=== PATIENT | male | born 1955 | race Caucasian/White ===

== ENCOUNTER → 2016-07-27 | Outpatient (REF) | payer OTHER ==
[~2016-07-27] MED LIST: ALOE JUICE; MULTIVITAMIN PO; RANI15TA PO
== END | disposition home or self-care (01) ==
LOC: M LAB REF 12:44
PROVIDERS: ATTEND Internal Medicine
DX: R31.9 Hematuria, unspecified (principal)

== ENCOUNTER 2016-08-27 07:28 | Emergency (ER) | payer OTHER ==
[~2016-08-27] VITALS: Ht 185.4 cm; Wt 81.6 kg
--- NOTE | 2016-08-27 08:12 | REP ---
Clinical: Chest pain . Comparison: 07/22/2009 . Findings: The mediastinum and cardiac silhouette are stable and within normal limits for portable technique. The lung owens are clear without acute consolidation, effusion, or pneumothorax. Skeletal structures are intact. Impression: Normal portable chest x-ray Signed by Davidson Blackman MD 08/27/2016 08:04 A
[2016-08-27 08:25] LABS: ANION GAP 8 MEQ/L (8-16); BLOOD UREA NITROGEN 18 MG/DL (7-18); CALCIUM LEVEL 8.8 MG/DL (8.8-10.2); CARBON DIOXIDE LEVEL 24 MEQ/L (21-32); CHLORIDE LEVEL 109 MEQ/L (98-107); CREATININE FOR GFR 1.05 MG/DL (0.70-1.30); GLOMERULAR FILTRATION RATE > 60.0 (>49); GLUCOSE, FASTING 131 MG/DL (80-110); POTASSIUM SERUM 4.1 MEQ/L (3.5-5.1); SODIUM LEVEL 141 MEQ/L (136-145)
[2016-08-27 08:31] LABS: BASO % 0.3 % (0.0-1.0); EOS # 0.1 K/mm3 (0.0-0.50); EOS % 1.3 % (0.0-3.0); LARGE UNSTAINED CELL # 0.2 K/mm3 (0.0-0.4); LARGE UNSTAINED CELL % 3.2 % (0.0-4.0); LYMPH # 2.7 K/mm3 (1.5-4.5); LYMPH % 32.7 % (24.0-44.0); MEAN CORPUSCULAR HEMOGLOBIN 30.7 pg (27.0-33.0); MEAN CORPUSCULAR HGB CONC 32.7 g/dl (32.0-36.5); MONO # 0.5 K/mm3 (0.0-0.8); MONO % 7.2 % (0.0-5.0); NEUTROPHILS # 4.1 K/mm3 (1.8-7.7); NEUTROPHILS % 55.2 % (36.0-66.0); PLATELET COUNT, AUTOMATED 327 k/mm3 (150-450); RED CELL DISTRIBUTION WIDTH 14.5 % (11.5-14.5); WHITE BLOOD COUNT 7.4 K/mm3 (4.0-10.0)
[2016-08-27] MEDS ORDERED: ISOVUE-370 76% 100ML VIAL (Q9967) As Ordered ONE (11:12)
--- NOTE | 2016-08-27 13:44 | REP ---
CT pulmonary angiogram: With IV contrast. History: Chest pain, shortness of breath, elevated D-dimer level. Comparison studies: No comparison contrast enhanced chest CT study. There is a lung cancer screening noncontrast chest CT study from November 08, 2014. Contrast dose: 75 cc's of Isovue [address] technique: Helical scanning is acquired and overlapping 1.5 mm and contiguous 3 mm axial images are reformatted. In addition, a 3-D work station is deployed to generate thick slab maximum intensity projection images in sagittal and coronal imaging projections. CT pulmonary angiographic findings: There is good opacification of the pulmonary arterial tree and there is no CT evidence of pulmonary embolism. The thoracic aorta has a normal appearance on postcontrast CT images. 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 This is of no clinical significance. The lung owens are essentially clear. There is no evidence of pleural effusion or pericardial effusion. No hilar or mediastinal mass or adenopathy is seen. No adrenal lesion is observed. No significant pulmonary nodule is seen. Impression: No CT evidence of pulmonary embolism. No active cardiopulmonary disease. Signed by Navi Ribera MD 08/27/2016 05:37 P
[2016-08-27] MEDS ORDERED: ASPI81TA85 PO (14:52)
[2016-08-27 16:12] VITALS: BP 111/67
--- NOTE | 2016-08-28 08:42 | ECGEPIP ---
Stationary ECG Study [facility] - ED Test Date: 2016-08-27 Pat Name: BLANCO DAVIS Department: Room: - Gender: M Planning Assistant: JT : 1955 Requested By: Helen Samson Order Number: [id number] Reading MD: Helen Samson Measurements Intervals [place] Rate: 64 P: 55 [place]: 143 QRS: 36 QRSD: 127 T: 57 QT: 384 QTc: 397 Interpretive Statements SINUS RHYTHM MODERATE INTRAVENTRICULAR CONDUCTION DELAY DECREASED RATE 08/27/16 Electronically Signed On 08-28-2016 8:41:55 EDT by Helen Samson
--- NOTE | 2016-08-28 08:42 | ECGEPIP ---
Stationary ECG Study [facility] - ED Test Date: 2016-08-27 Pat Name: BLANCO DAVIS Department: Room: - Gender: M Sales Representative Facility Services: JGeovani : 1955 Requested By: Helen Samson Order Number: [id number] Reading MD: Helen Samson Measurements Intervals [place] Rate: 95 P: 67 MT: 149 QRS: 29 QRSD: 125 T: 48 QT: 373 QTc: 469 Interpretive Statements SINUS RHYTHM MODERATE INTRAVENTRICULAR CONDUCTION DELAY NO PRIOR FOR COMPARISON Electronically Signed On 08-28-2016 8:41:43 EDT by Helen Samson
== END 2016-08-27 16:14 | disposition home or self-care (01) ==
LOC: M ED 10:22
DX: R07.9 Chest pain, unspecified (principal); Z82.49 Family history of ischemic heart disease and other diseases of the circulatory system; Z79.82 Long term (current) use of aspirin; Z79.899 Other long term (current) drug therapy; F17.210 Nicotine dependence, cigarettes, uncomplicated
CPT/HCPCS: 36415; 71010; 71275; 80048; 82550; 82553; 85025; 85379; 93005; 93041; 94760; 99285; Q9967

== ENCOUNTER 2016-09-01 11:32 | Emergency (ER) | payer OTHER ==
[~2016-09-01] VITALS: Ht 185.4 cm; Wt 81.6 kg
[~2016-09-01 11:32] MED LIST changes: +ASPI81TA85 PO
[2016-09-01 12:42] LABS: BASO % 0.4 % (0.0-1.0); EOS % 0.6 % (0.0-3.0); LARGE UNSTAINED CELL # 0.2 K/mm3 (0.0-0.4); LARGE UNSTAINED CELL % 1.9 % (0.0-4.0); LYMPH % 23.7 % (24.0-44.0); MEAN CORPUSCULAR HEMOGLOBIN 31.2 pg (27.0-33.0); MEAN CORPUSCULAR HGB CONC 32.8 g/dl (32.0-36.5); MONO # 0.6 K/mm3 (0.0-0.8); MONO % 7.5 % (0.0-5.0); NEUTROPHILS # 5.3 K/mm3 (1.8-7.7); NEUTROPHILS % 65.9 % (36.0-66.0); PLATELET COUNT, AUTOMATED 388 k/mm3 (150-450); RED CELL DISTRIBUTION WIDTH 14.3 % (11.5-14.5)
[2016-09-01 12:43] LABS: ANION GAP 6 MEQ/L (8-16); BLOOD UREA NITROGEN 17 MG/DL (7-18); CALCIUM LEVEL 9.6 MG/DL (8.8-10.2); CARBON DIOXIDE LEVEL 26 MEQ/L (21-32); CHLORIDE LEVEL 107 MEQ/L (98-107); CREATININE FOR GFR 1.17 MG/DL (0.70-1.30); GLOMERULAR FILTRATION RATE > 60.0 (>49); GLUCOSE, FASTING 108 MG/DL (80-110); POTASSIUM SERUM 4.2 MEQ/L (3.5-5.1); SODIUM LEVEL 139 MEQ/L (136-145)
[2016-09-01] MEDS ORDERED: ASPIRIN 81 MG CHEW TABLET PO ONE (13:15)
[2016-09-01] MEDS ORDERED: GI COCKTAIL 50ML BTL(HYOSCYAMINE/MAALOX/LIDOCAINE VISCOUS)(1:3:1) PO ONE (13:15)
[2016-09-01 13:25] LABS: ALBUMIN 4.1 GM/DL (3.2-5.2); ALBUMIN/GLOBULIN RATIO 1.05 (1.00-1.93); ALKALINE PHOSPHATASE 103 U/L (45-117); ALT/SGPT 23 U/L (12-78); AST/SGOT 13 U/L (15-37); BILIRUBIN,DIRECT < 0.1 MG/DL (0.0-0.2); BILIRUBIN,TOTAL 0.3 MG/DL (0.2-1.0)
--- NOTE | 2016-09-01 13:46 | REP ---
Chest two views HISTORY: Chest pain Comparison: 08/27/2016 The lungs are clear. The heart is normal in size. The pulmonary vasculature is normal in appearance. The bony structure is intact. IMPRESSION: No acute disease. Signed by Livan Gardiner MD 09/01/2016 01:38 P
[2016-09-01] MEDS ORDERED: PROT1TAB2 PO (18:17)
[2016-09-01 18:33] VITALS: BP 121/73
--- NOTE | 2016-09-02 07:17 | ECGEPIP ---
Stationary ECG Study [facility] - ED Test Date: 2016-09-01 Pat Name: BLANCO DAVIS Department: Room: - Gender: M Forklift Picker: mario : 1955 Requested By: Faye Leija Order Number: [id number] Reading MD: Helen Samson Measurements Intervals [place] Rate: 67 P: 65 [place]: 141 QRS: 26 QRSD: 115 T: 57 QT: 384 QTc: 406 Interpretive Statements SINUS RHYTHM WITH SINUS ARRHYTHMIA MODERATE INTRAVENTRICULAR CONDUCTION DELAY SIMILAR 08/27/16 Electronically Signed On 09-02-2016 7:17:02 EDT by Helen Samson
--- NOTE | 2016-09-02 07:21 | ECGEPIP ---
Stationary ECG Study [facility] - ED Test Date: 2016-09-01 Pat Name: BLANCO DAVIS Department: Room: - Gender: M Methods Engineer: JGeovani : 1955 Requested By: GASTON Diaz Order Number: [id number] Reading MD: Helen Samson Measurements Intervals [place] Rate: 50 P: 51 [place]: 142 QRS: 41 QRSD: 121 T: 58 QT: 426 QTc: 390 Interpretive Statements SINUS BRADYCARDIA IVCD SIMILAR 11:49 Electronically Signed On 09-02-2016 7:21:13 EDT by Helen Samson
== END 2016-09-01 18:39 | disposition home or self-care (01) ==
LOC: M ED 13:31
DX: R07.9 Chest pain, unspecified (principal)

== ENCOUNTER → 2016-09-18 | Outpatient (CLI) | payer OTHER ==
[~2016-09-18] MED LIST changes: +PROT1TAB2 PO
--- NOTE | 2016-09-18 10:59 | REP ---
CT of the left hip: Axial images are acquired helical scanning and are reformatted sagittal and coronal projections. There are no comparison studies. There is gamma nail fixation of a subtrochanteric fracture. The subtrochanteric fracture is a spiral fracture of the proximal shaft of the femur. The lucent fracture line persists except for a focal zone of bony fusion at the inferior margin of the fracture. 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 Moderate diffuse demineralization is noted. No focal lytic, blastic or destructive changes are identified. The distal tip of the gamma nail is excluded from the study. Signed by Kevin Carroll MD 09/18/2016 10:50 A
== END ==
LOC: M RAD 09:59
PROVIDERS: ATTEND Orthopaedic Surgery
DX: M16.12 Unilateral primary osteoarthritis, left hip (principal); M85.88 Other specified disorders of bone density and structure, other site

== ENCOUNTER → 2017-06-30 | Outpatient (CLI) | payer OTHER ==
[2017-06-30 15:41] LABS: CREATININE FOR GFR 1.09 MG/DL (0.70-1.30); GLOMERULAR FILTRATION RATE > 60.0 (>49)
[2017-06-30 15:41] LABS: BLOOD UREA NITROGEN 23 MG/DL (7-18)
[2017-07-02 14:16] LABS: TISSUE TRANSGLUTAMINASE IgA <2 U/mL (0-3)
[2017-07-07 08:09] LABS: IGASUB3 72.6 mg/dL (13.4-97.9); IgA SERUM (part of Subclasses) 248 mg/dL (61-437)
== END ==
LOC: M LAB 14:29
DX: R10.13 Epigastric pain (principal)

== ENCOUNTER 2017-07-20 06:54 | Day surgery (SDC) | payer OTHER ==
[2017-07-20] MEDS: NS 1,000 ML IV (07:30)
[2017-07-20] MEDS ORDERED: LIDOCAINE 2% INJ 100 MG/5 ML SDV (FOR ANES.) As Ordered (08:08)
[2017-07-20] MEDS ORDERED: PROPOFOL 200 MG/20 ML VIAL As Ordered ×3 (08:08→08:23)
[2017-07-20] MEDS ORDERED: PHENYLephrine HCL 500 MCG/5 ML (100MCG/ML) SYRINGE (J2370) As Ordered (08:22)
== END 2017-07-20 09:25 | disposition home or self-care (01) ==
LOC: M OPP 06:54
DX: K21.9 Gastro-esophageal reflux disease without esophagitis (principal); K22.8 Other specified diseases of esophagus; K29.70 Gastritis, unspecified, without bleeding; K31.89 Other diseases of stomach and duodenum; R12 Heartburn; F32.9 Major depressive disorder, single episode, unspecified; F41.9 Anxiety disorder, unspecified; Z79.899 Other long term (current) drug therapy; Z80.9 Family history of malignant neoplasm, unspecified
CPT/HCPCS: 91035

== ENCOUNTER 2017-08-10 09:24 | Emergency (ER) | payer OTHER ==
[2017-08-10 09:59] LABS: BASO % 0.5 % (0.0-1.0); EOS # 0.1 10^3/uL (0.0-0.50); EOS % 1.5 % (0.0-3.0); HEMATOCRIT 44.8 % (42.0-52.0); HEMOGLOBIN 15.1 g/dl (14.0-18.0); IMMATURE GRANULOCYTE % 0.2 % (0-3.0); LYMPH # 3.6 10^3/uL (1.5-4.5); LYMPH % 41.1 % (24.0-44.0); MEAN CORPUSCULAR HEMOGLOBIN 31.3 pg (27.0-33.0); MEAN CORPUSCULAR HGB CONC 33.7 g/dl (32.0-36.5); MEAN CORPUSCULAR VOLUME 92.9 fl (80.0-96.0); MONO # 0.9 10^3/uL (0.0-0.8); MONO % 10.7 % (0.0-5.0); PLATELET COUNT, AUTOMATED 314 10^3/uL (150-450); RED BLOOD COUNT 4.82 10^6/uL (4.30-6.10); RED CELL DISTRIBUTION WIDTH 14.2 % (11.5-14.5); WHITE BLOOD COUNT 8.7 10^3/uL (4.0-10.0)
[2017-08-10] MEDS: ASPIRIN 81 MG CHEW TABLET PO (10:00)
[2017-08-10 10:09] LABS: ALKALINE PHOSPHATASE 78 U/L (45-117); ALT/SGPT 24 U/L (12-78); ANION GAP 8 MEQ/L (8-16); AST/SGOT 15 U/L (7-37); BILIRUBIN,DIRECT < 0.1 MG/DL (0.0-0.2); BILIRUBIN,TOTAL 0.4 MG/DL (0.2-1.0); BLOOD UREA NITROGEN 19 MG/DL (7-18); CALCIUM LEVEL 8.9 MG/DL (8.8-10.2); CARBON DIOXIDE LEVEL 26 MEQ/L (21-32); CHLORIDE LEVEL 106 MEQ/L (98-107); CPK CREATINE PHOSPHOKINASE 94 U/L (39-308); CREATININE FOR GFR 1.07 MG/DL (0.70-1.30); FREE T4 0.91 NG/DL (0.76-1.46); GLOMERULAR FILTRATION RATE > 60.0 (>49); GLUCOSE, FASTING 112 MG/DL (70-100); LIPASE 117 U/L (73-393); POTASSIUM SERUM 3.5 MEQ/L (3.5-5.1); SODIUM LEVEL 140 MEQ/L (136-145); TROPONIN I < 0.02 NG/ML (< 0.10)
[2017-08-10 10:15] LABS: MB/CK RELATIVE INDEX 1.06 (< OR =4); NT-PRO BNP 61 PG/ML (<125)
[2017-08-10 10:21] LABS: INR 0.86; PROTHROMBIN TIME 11.8 SECONDS (12.4-14.5)
[2017-08-10 10:22] LABS: PARTIAL THROMBOPLASTIN TIME 28.8 SECONDS (26.8-37.9)
[2017-08-10 12:34] LABS: CPK CREATINE PHOSPHOKINASE 79 U/L (39-308); MB/CK RELATIVE INDEX 1.26 (< OR =4); TROPONIN I < 0.02 NG/ML (< 0.10)
== END 2017-08-10 13:56 | disposition home or self-care (01) ==
LOC: M ED 09:24
DX: R07.89 Other chest pain (principal); R00.2 Palpitations; K21.9 Gastro-esophageal reflux disease without esophagitis; Z79.899 Other long term (current) drug therapy; Z87.891 Personal history of nicotine dependence
CPT/HCPCS: 71045

== ENCOUNTER 2017-08-31 08:07 | Emergency (ER) | payer OTHER ==
[2017-08-31 08:53] LABS: BASO % 0.5 % (0.0-1.0); EOS # 0.2 10^3/uL (0.0-0.50); EOS % 2.3 % (0.0-3.0); HEMATOCRIT 46.3 % (42.0-52.0); HEMOGLOBIN 15.5 g/dl (14.0-18.0); IMMATURE GRANULOCYTE % 0.2 % (0-3.0); MEAN CORPUSCULAR HEMOGLOBIN 31.1 pg (27.0-33.0); MEAN CORPUSCULAR HGB CONC 33.5 g/dl (32.0-36.5); MONO % 11.7 % (0.0-5.0); NEUTROPHILS # 3.9 10^3/uL (1.8-7.7); NEUTROPHILS % 48.3 % (36.0-66.0); PLATELET COUNT, AUTOMATED 322 10^3/uL (150-450); RED BLOOD COUNT 4.98 10^6/uL (4.30-6.10); RED CELL DISTRIBUTION WIDTH 14.3 % (11.5-14.5); WHITE BLOOD COUNT 8.1 10^3/uL (4.0-10.0)
[2017-08-31 08:58] LABS: BEDSIDE GLUCOSE 84 MG/DL (80-115)
[2017-08-31] MEDS: NS 500 ML IV (09:01)
[2017-08-31 09:19] LABS: ALBUMIN 3.9 GM/DL (3.2-5.2); ALKALINE PHOSPHATASE 75 U/L (45-117); ALT/SGPT 23 U/L (12-78); ANION GAP 7 MEQ/L (8-16); AST/SGOT 16 U/L (7-37); BILIRUBIN,DIRECT < 0.1 MG/DL (0.0-0.2); BILIRUBIN,TOTAL 0.4 MG/DL (0.2-1.0); BLOOD UREA NITROGEN 18 MG/DL (7-18); CALCIUM LEVEL 9.3 MG/DL (8.8-10.2); CARBON DIOXIDE LEVEL 29 MEQ/L (21-32); CHLORIDE LEVEL 106 MEQ/L (98-107); CREATININE FOR GFR 1.06 MG/DL (0.70-1.30); GLOMERULAR FILTRATION RATE > 60.0 (>49); GLUCOSE, FASTING 91 MG/DL (70-100); LIPASE 126 U/L (73-393); POTASSIUM SERUM 3.8 MEQ/L (3.5-5.1); SODIUM LEVEL 142 MEQ/L (136-145); TOTAL PROTEIN 7.8 GM/DL (6.4-8.2)
[2017-08-31 10:47] LABS: CPK CREATINE PHOSPHOKINASE 66 U/L (39-308); MB/CK RELATIVE INDEX 1.51 (< OR =4); TROPONIN I < 0.02 NG/ML (< 0.10)
== END 2017-08-31 11:59 | disposition home or self-care (01) ==
LOC: M ED 08:07
DX: R42 Dizziness and giddiness (principal); H93.19 Tinnitus, unspecified ear; G89.29 Other chronic pain; R10.9 Unspecified abdominal pain; Z79.82 Long term (current) use of aspirin
CPT/HCPCS: 70450

== ENCOUNTER → 2017-10-15 | Outpatient (CLI) | payer OTHER ==
[~2017-10-15] MED LIST changes: -ALOE JUICE; -ASPI81TA85 PO; +GASTROGRAFIN SOLUTION 30ML (Q9963) As Ordered; +ISOVUE-370 76% 100ML VIAL (Q9967) As Ordered; -MULTIVITAMIN PO; -PROT1TAB2 PO; -RANI15TA PO
== END ==
LOC: M RAD 08:52
DX: R10.13 Epigastric pain (principal); R10.12 Left upper quadrant pain; M16.0 Bilateral primary osteoarthritis of hip
CPT/HCPCS: Q9963

== ENCOUNTER → 2018-07-05 | Outpatient (REF) | payer OTHER ==
[~2018-07-05] MED LIST changes: +ALOE JUICE; +ASPI81TA85 PO; -GASTROGRAFIN SOLUTION 30ML (Q9963) As Ordered; +HOLTER MONITOR; -ISOVUE-370 76% 100ML VIAL (Q9967) As Ordered; +MULTIVITAMIN PO; +PANT40TA3 PO; +PROT1TAB2 PO; +RANI15TA PO; +TUMS500C PO; +ZANT300T9 PO
[2018-07-05 12:36] LABS: AMYLASE 25 U/L (25-115); LIPASE 110 U/L (73-393)
== END ==
LOC: M LAB REF 11:48
PROVIDERS: ATTEND Nurse Practitioner Family
DX: R10.812 Left upper quadrant abdominal tenderness (principal)

== ENCOUNTER 2018-07-09 04:57 | Emergency (ER) | payer OTHER ==
[~2018-07-09] VITALS: Ht 185.4 cm; Wt 81.8 kg
[2018-07-09 05:41] LABS: BASO % 0.6 % (0.0-1.0); EOS # 0.1 10^3/uL (0.0-0.50); EOS % 1.7 % (0.0-3.0); HEMATOCRIT 44.6 % (42.0-52.0); HEMOGLOBIN 14.7 g/dl (13.5-17.5); LYMPH # 3.4 10^3/uL (1.5-4.5); LYMPH % 47.7 % (24.0-44.0); MEAN CORPUSCULAR HEMOGLOBIN 31.1 pg (27.0-33.0); MEAN CORPUSCULAR VOLUME 94.3 fl (80.0-96.0); MONO # 0.9 10^3/uL (0.0-0.8); MONO % 12.9 % (0.0-5.0); NEUTROPHILS # 2.6 10^3/uL (1.8-7.7); PLATELET COUNT, AUTOMATED 308 10^3/uL (150-450); RED BLOOD COUNT 4.73 10^6/uL (4.30-6.10)
[2018-07-09 05:52] LABS: INR 0.98; PROTHROMBIN TIME 13.1 SECONDS (12.1-14.4)
[2018-07-09 06:02] LABS: ALBUMIN 3.8 GM/DL (3.2-5.2); ALT/SGPT 25 U/L (12-78); BILIRUBIN,TOTAL 0.1 MG/DL (0.2-1.0); BLOOD UREA NITROGEN 17 MG/DL (7-18); CALCIUM LEVEL 8.6 MG/DL (8.8-10.2); CARBON DIOXIDE LEVEL 24 MEQ/L (21-32); CHLORIDE LEVEL 110 MEQ/L (98-107); CK-MB VALUE MASS < 1.0 NG/ML (<3.6); CPK CREATINE PHOSPHOKINASE 92 U/L (39-308); CREATININE FOR GFR 1.05 MG/DL (0.70-1.30); GLOMERULAR FILTRATION RATE > 60.0 (>49); GLUCOSE, FASTING 87 MG/DL (70-100); LIPASE 139 U/L (73-393); MB/CK RELATIVE INDEX 1.09 (< OR =4); POTASSIUM SERUM 3.6 MEQ/L (3.5-5.1); SODIUM LEVEL 144 MEQ/L (136-145); TROPONIN I < 0.02 NG/ML (< 0.10)
[2018-07-09] MEDS ORDERED: ISOVUE-370 76% 100ML VIAL (Q9967) As Ordered ONE (06:47)
[2018-07-09 06:52] LABS: MAGNESIUM LEVEL 1.9 MG/DL (1.8-2.4)
--- NOTE | 2018-07-09 07:51 | REPVR ---
EXAM: CT Angiography Chest With Contrast EXAM DATE/TIME: 07/09/2018 6:19 AM CLINICAL HISTORY: 63 years old, male; Pain; Chest pain; Type not specified TECHNIQUE: Axial computed tomographic angiography images of the chest with intravenous contrast using CT angiography protocol. All CT scans at this facility use at least one of these dose optimization techniques: automated exposure control; mA and/or kV adjustment per patient size (includes targeted exams where dose is matched to clinical indication); or iterative reconstruction. Coronal and sagittal reformatted images were created and reviewed. MIP reconstructed images were created and reviewed. CONTRAST: 75 ml of iso administered intravenously. COMPARISON: CT ANGIO CHEST 08/27/2016 11:19 AM FINDINGS: Pulmonary arteries: Questionable eccentric wall thickening of the arterial structure to the left upper lobe anteriorly series 401 images 75-78 is similar to the prior CT. No acute pulmonary embolus. Aorta: Normal. No aortic aneurysm. No aortic dissection. Lungs: Minor dependent atelectasis posterior lower lungs. Pleural space: Normal. No pneumothorax. No pleural effusion. Heart: Right to left ventricular ratio 0.9. Intraperitoneal space: Trace calcification thoracic aortic arch. Lymph nodes: A few small mediastinal lymph nodes. Bones/joints: Variant origin of thoracic arch vasculature. Soft tissues: Unremarkable. IMPRESSION: No evidence of acute pulmonary embolus. Electronically signed by: Rianna Monsalve On 07/09/2018 07:50:41 AM
--- NOTE | 2018-07-09 08:13 | REP ---
Clinical: Abdominal pain. Technique: Two supine views of the abdomen and pelvis. Findings: Bowel gas pattern is nonspecific and without obstruction or perforation. No organomegaly. No abnormal calcifications. Skeletal structures demonstrate age-related changes. Phleboliths noted in the pelvis. Impression: Nonspecific abdominal radiograph. Electronically Signed by Davidson Blackman MD 07/09/2018 08:05 A
--- NOTE | 2018-07-09 08:17 | REP ---
Clinical: Acute chest pain . Comparison: 08/10/2017 . Findings: The mediastinum and cardiac silhouette are stable and within normal limits for portable technique. The lung owens are clear without acute consolidation, effusion, or pneumothorax. Skeletal structures are intact. Impression: No acute cardiopulmonary process appreciated. Electronically Signed by Davidson Blackman MD 07/09/2018 08:08 A
[2018-07-09 10:35] LABS: CK-MB VALUE MASS < 1.0 NG/ML (<3.6); CPK CREATINE PHOSPHOKINASE 84 U/L (39-308); MB/CK RELATIVE INDEX 1.19 (< OR =4); TROPONIN I < 0.02 NG/ML (< 0.10)
[2018-07-09 10:59] VITALS: BP 111/68
--- NOTE | 2018-07-10 09:12 | ECGEPIP ---
Stationary ECG Study [facility] - ED Test Date: 2018-07-09 Pat Name: BLANCO DAVIS Department: Room: - Gender: M Monotype Machinist: GT : 1955 Requested By: CORRY Rizo Order Number: [id number] Reading MD: Helen Samson Measurements Intervals [place] Rate: 93 P: 60 [place]: 148 QRS: -3 QRSD: 106 T: 55 QT: 363 QTc: 452 Interpretive Statements SINUS RHYTHM WITH SINUS ARRHYTHMIA MINIMAL ST DEPRESSION LOW VOLTAGE PRWP IVCD INCREASED RATE 08/31/17 Electronically Signed On 07-10-2018 9:12:42 EST by Helen Samson
--- NOTE | 2018-07-10 09:15 | ECGEPIP ---
Stationary ECG Study [facility] - ED Test Date: 2018-07-09 Pat Name: BLANCO DAVIS Department: Room: - Gender: M Coordinate Measuring Machine Programmer: JAYANT : 1955 Requested By: THEODORE MORALES Order Number: [id number] Reading MD: Helen Samson Measurements Intervals [place] Rate: 62 P: 72 MD: 137 QRS: 10 QRSD: 104 T: 52 QT: 409 QTc: 418 Interpretive Statements SINUS RHYTHM WITH SINUS ARRHYTHMIA LOW QRS VOLTAGE IN EXTREMITY LEADS PRWP DECREASED RATE 07/09/18 Electronically Signed On 07-10-2018 9:15:13 EST by Helen Samson
== END 2018-07-09 11:06 | disposition home or self-care (01) ==
LOC: M ED 04:57
DX: R07.89 Other chest pain (principal); Z87.891 Personal history of nicotine dependence; Z79.899 Other long term (current) drug therapy
CPT/HCPCS: 71045; 71275; 74018; 80053; 82550; 82553; 83690; 83735; 84443; 84484; 85025; 85610; 93005; 93041; 94760; 99285; Q9967

== ENCOUNTER 2018-10-11 11:14 | Emergency (ER) | payer OTHER ==
[~2018-10-11] VITALS: Ht 185.4 cm; Wt 84.8 kg
[2018-10-11] MEDS ORDERED: ASPIRIN 81 MG CHEW TABLET PO ONE (11:45)
[2018-10-11 11:51] LABS: BASO % 0.4 % (0.0-1.0); EOS # 0.1 10^3/uL (0.0-0.50); EOS % 0.9 % (0.0-3.0); HEMOGLOBIN 14.6 g/dl (13.5-17.5); LYMPH # 2.2 10^3/uL (1.5-4.5); MEAN CORPUSCULAR HEMOGLOBIN 31.2 pg (27.0-33.0); MEAN CORPUSCULAR HGB CONC 32.4 g/dl (32.0-36.5); MEAN CORPUSCULAR VOLUME 96.2 fl (80.0-96.0); MONO # 0.8 10^3/uL (0.0-0.8); MONO % 10.7 % (0.0-5.0); NEUTROPHILS # 4.3 10^3/uL (1.8-7.7); NEUTROPHILS % 57.7 % (36.0-66.0); PLATELET COUNT, AUTOMATED 292 10^3/uL (150-450); RED BLOOD COUNT 4.68 10^6/uL (4.30-6.10); WHITE BLOOD COUNT 7.4 10^3/uL (4.0-10.0)
[2018-10-11 12:02] LABS: INR 0.88; PARTIAL THROMBOPLASTIN TIME 29.6 SECONDS (25.4-37.6)
[2018-10-11 12:20] LABS: ALBUMIN 4.3 GM/DL (3.2-5.2); ALT/SGPT 27 U/L (12-78); BILIRUBIN,DIRECT < 0.1 MG/DL (0.0-0.2); BILIRUBIN,TOTAL 0.4 MG/DL (0.2-1.0); LIPASE 105 U/L (73-393); TOTAL PROTEIN 7.8 GM/DL (6.4-8.2)
[2018-10-11 12:21] LABS: BLOOD UREA NITROGEN 17 MG/DL (7-18); CALCIUM LEVEL 8.6 MG/DL (8.8-10.2); CARBON DIOXIDE LEVEL 27 MEQ/L (21-32); CHLORIDE LEVEL 107 MEQ/L (98-107); CPK CREATINE PHOSPHOKINASE 87 U/L (39-308); GLOMERULAR FILTRATION RATE > 60.0 (>49); GLUCOSE, FASTING 97 MG/DL (70-100); MB/CK RELATIVE INDEX 1.38 (< OR =4); POTASSIUM SERUM 4.3 MEQ/L (3.5-5.1); SODIUM LEVEL 139 MEQ/L (136-145); TROPONIN I < 0.02 NG/ML (< 0.10)
--- NOTE | 2018-10-11 12:43 | REP ---
Chest one-view HISTORY: Chest pain Comparison: 07/09/2018 The lungs are clear. The heart is normal in size. The pulmonary vasculature is normal in appearance. Impression: No acute disease. Electronically Signed by Livan Gardiner MD 10/11/2018 12:35 P
[2018-10-11] MEDS ORDERED: ISOVUE-370 76% 100ML VIAL (Q9967) As Ordered ONE (12:49)
--- NOTE | 2018-10-11 13:33 | REP ---
CT CHEST WITH IV CONTRAST: TECHNIQUE: Axial contrast enhanced images from the thoracic inlet to the upper abdomen using 100 mL Isovue 370 intravenous contrast material with multiplanar reformations. Lungs are clear with no infiltrate. There is no thoracic aortic aneurysm or dissection. There are mild atherosclerotic calcifications of the thoracic aorta. There is no mediastinal, hilar, or chest wall lymphadenopathy. The heart is normal in size. There is no pleural or pericardial effusion. Very mild degenerative changes of the spine. IMPRESSION: No evidence of thoracic aortic aneurysm or dissection. Electronically Signed by Kevin Renae MD 10/12/2018 04:41 P
--- NOTE | 2018-10-11 13:48 | REP ---
CT ABDOMEN AND PELVIS WITH IV CONTRAST: TECHNIQUE: Axial contrast enhanced images from the lung bases to the pubic symphysis using 100 mL Isovue 370 intravenous contrast material with multiplanar reformations. Liver, spleen, adrenals and pancreas are unremarkable. There appears to be a tiny cyst in the lower pole of the right kidney and another is seen in the upper pole of the left kidney. There is no hydronephrosis bilaterally. There is mild atherosclerotic calcification of the abdominal aorta without aneurysm or dissection. There is no adenopathy. There is no free air or free fluid. There is no bowel wall thickening. Large amount of fecal material is seen in the rectosigmoid colon. The urinary bladder is mildly distended and grossly unremarkable. There is metallic internal fixation of the proximal left femur. 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 IMPRESSION: No evidence of abdominal aortic aneurysm or dissection. 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 Electronically Signed by Kevin Renae MD 10/12/2018 04:42 P
[2018-10-11 18:06] LABS: CK-MB VALUE MASS < 1.0 NG/ML (<3.6); CPK CREATINE PHOSPHOKINASE 76 U/L (39-308); MB/CK RELATIVE INDEX 1.32 (< OR =4); TROPONIN I < 0.02 NG/ML (< 0.10)
[2018-10-11 18:30] VITALS: BP 109/65
--- NOTE | 2018-10-12 05:48 | ECGEPIP ---
Stationary ECG Study [facility] - ED Test Date: 2018-10-11 Pat Name: BLANCO DAVIS Department: Room: - Gender: M Trim Crew Supervisor: JEREMIAH : 1955 Requested By: GASTON Diaz Order Number: [id number] Reading MD: Jte Ferrera Measurements Intervals [place] Rate: 62 P: 71 [place]: 146 QRS: 22 QRSD: 106 T: 49 QT: 408 QTc: 416 Interpretive Statements SINUS RHYTHM POOR R WAVE PROGRESSION SIMILAR TO 07/09/18 Electronically Signed On 10-12-2018 5:48:28 EDT by Jet Ferrera
--- NOTE | 2018-10-12 05:54 | ECGEPIP ---
Stationary ECG Study [facility] - ED Test Date: 2018-10-11 Pat Name: BLANCO DAVIS Department: Room: - Gender: M Catering Assistant: abdifatah : 1955 Requested By: GASTON Diaz Order Number: [id number] Reading MD: Jet Ferrera Measurements Intervals [place] Rate: 53 P: 44 [place]: 148 QRS: 16 QRSD: 110 T: 42 QT: 420 QTc: 395 Interpretive Statements SINUS BRADYCARDIA POOR R WAVE PROGRESSION SIMILAR TO PRIOR ON SAME DATE Electronically Signed On 10-12-2018 5:54:20 EDT by Jet Ferrera
== END 2018-10-11 18:45 | disposition home or self-care (01) ==
LOC: M ED 11:14
DX: R07.89 Other chest pain (principal); M87.052 Idiopathic aseptic necrosis of left femur; R10.12 Left upper quadrant pain; G89.29 Other chronic pain; Z87.891 Personal history of nicotine dependence
CPT/HCPCS: 71045; 71260; 74177; 80048; 80076; 82550; 82553; 83690; 84484; 85025; 85610; 85730; 93005; 93041; 94760; 99285; Q9967

== ENCOUNTER 2018-10-18 06:43 | Emergency (ER) | payer OTHER ==
[~2018-10-18] VITALS: Ht 185.4 cm; Wt 83.0 kg
[2018-10-18] MEDS ORDERED: [UNRECOGNIZED DRUG - REMARK] (06:53)
--- NOTE | 2018-10-18 07:50 | REP ---
Clinical: Acute chest pain . Comparison: 10/11/2018 . Findings: The mediastinum and cardiac silhouette are stable and within normal limits for portable technique. The lung owens are clear without acute consolidation, effusion, or pneumothorax. Skeletal structures are intact. Impression: No acute cardiopulmonary process appreciated. Electronically Signed by Davidson Blackman MD 10/18/2018 07:41 A
[2018-10-18 07:51] LABS: BASO % 0.5 % (0.0-1.0); EOS # 0.1 10^3/uL (0.0-0.50); EOS % 1.3 % (0.0-3.0); HEMATOCRIT 41.3 % (42.0-52.0); HEMOGLOBIN 13.3 g/dl (13.5-17.5); LYMPH # 1.7 10^3/uL (1.5-4.5); LYMPH % 27.3 % (24.0-44.0); MEAN CORPUSCULAR HEMOGLOBIN 30.6 pg (27.0-33.0); MEAN CORPUSCULAR HGB CONC 32.2 g/dl (32.0-36.5); MEAN CORPUSCULAR VOLUME 94.9 fl (80.0-96.0); MONO # 0.6 10^3/uL (0.0-0.8); MONO % 10.4 % (0.0-5.0); NEUTROPHILS # 3.7 10^3/uL (1.8-7.7); NEUTROPHILS % 60.2 % (36.0-66.0); PLATELET COUNT, AUTOMATED 280 10^3/uL (150-450); RED BLOOD COUNT 4.35 10^6/uL (4.30-6.10); WHITE BLOOD COUNT 6.2 10^3/uL (4.0-10.0)
--- NOTE | 2018-10-18 08:07 | REP ---
Clinical: Left shoulder pain. Technique: Internal rotation, external rotation, and Y view. Findings: Mild age-related cortical irregularity at the acromioclavicular joint is appreciated. The glenohumeral joint appears intact and normal for age. No periarticular calcifications or loose bodies are identified. The subacromial space is normal. The surrounding soft tissues are unremarkable. Impression: Mild generalized age-related changes primarily involving the acromioclavicular joint. Electronically Signed by Davidson Blackman MD 10/18/2018 07:58 A
[2018-10-18 08:21] LABS: INR 0.9; PROTHROMBIN TIME 12.2 SECONDS (12.1-14.4)
[2018-10-18 08:23] LABS: ALBUMIN 3.8 GM/DL (3.2-5.2); ALT/SGPT 23 U/L (12-78); BILIRUBIN,DIRECT < 0.1 MG/DL (0.0-0.2); BILIRUBIN,TOTAL 0.4 MG/DL (0.2-1.0); BLOOD UREA NITROGEN 19 MG/DL (7-18); CALCIUM LEVEL 8.5 MG/DL (8.8-10.2); CARBON DIOXIDE LEVEL 26 MEQ/L (21-32); CHLORIDE LEVEL 111 MEQ/L (98-107); CK-MB VALUE MASS < 1.0 NG/ML (<3.6); CPK CREATINE PHOSPHOKINASE 73 U/L (39-308); CREATININE FOR GFR 1.01 MG/DL (0.70-1.30); GLOMERULAR FILTRATION RATE > 60.0 (>49); GLUCOSE, FASTING 97 MG/DL (70-100); LIPASE 126 U/L (73-393); MB/CK RELATIVE INDEX 1.37 (< OR =4); NT-PRO BNP 66 PG/ML (<125); POTASSIUM SERUM 3.8 MEQ/L (3.5-5.1); SODIUM LEVEL 142 MEQ/L (136-145); TOTAL PROTEIN 7.1 GM/DL (6.4-8.2); TROPONIN I < 0.02 NG/ML (< 0.10)
--- NOTE | 2018-10-18 08:35 | REP ---
Left upper extremity duplex venous ultrasound: History: Left upper extremity pain. Rule out venous thrombosis. Findings: The left internal jugular, axillary, brachial, basilic, and cephalic veins are anechoic and compressible in the left upper extremity. Color flow imaging is homogeneous. Spectral Doppler interrogation is unremarkable. There is no evidence of left upper extremity venous thrombosis. Impression: Negative left upper extremity duplex venous ultrasound. No evidence of venous thrombosis. Electronically Signed by Navi Ribera MD 10/18/2018 08:26 A
[2018-10-18 12:52] LABS: CK-MB VALUE MASS < 1.0 NG/ML (<3.6); CPK CREATINE PHOSPHOKINASE 65 U/L (39-308); MB/CK RELATIVE INDEX 1.54 (< OR =4); TROPONIN I < 0.02 NG/ML (< 0.10)
[2018-10-18 13:45] VITALS: BP 99/60
--- NOTE | 2018-10-18 19:25 | ECGEPIP ---
Stationary ECG Study [facility] - ED Test Date: 2018-10-18 Pat Name: BLANCO DAVIS Department: Room: - Gender: M Medical Staff Specialist: : 1955 Requested By: Helen Samson Order Number: [id number] Reading MD: Gage Jeffers Measurements Intervals [place] Rate: 62 P: 49 [place]: 146 QRS: 2 QRSD: 130 T: 41 QT: 400 QTc: 408 Interpretive Statements SINUS RHYTHM Delayed anterior R wave progression Similar to tracing done 10-11-18 with increased rate Electronically Signed On 10-18-2018 19:24:45 EDT by Gage Jeffers
--- NOTE | 2018-10-18 19:37 | ECGEPIP ---
Stationary ECG Study [facility] - ED Test Date: 2018-10-18 Pat Name: BLANCO DAVIS Department: Room: - Gender: M Wood Cabinetmaker: TC : 1955 Requested By: Helen Samson Order Number: [id number] Reading MD: Gage Jeffers Measurements Intervals [place] Rate: 58 P: 63 [place]: 140 QRS: 27 QRSD: 105 T: 49 QT: 413 QTc: 406 Interpretive Statements SINUS BRADYCARDIA Delayed anterior R wave progression No significant change when compared to prior tracing of 10-18-18 Electronically Signed On 10-18-2018 19:37:33 EDT by Gage Jeffers
== END 2018-10-18 13:55 | disposition home or self-care (01) ==
LOC: M ED 06:43
DX: R07.9 Chest pain, unspecified (principal); R06.02 Shortness of breath; Z87.891 Personal history of nicotine dependence

== ENCOUNTER 2018-11-24 09:54 | Outpatient (RCR) | payer SELFPAY ==
[~2018-11-24 09:54] MED LIST changes: +[UNRECOGNIZED DRUG - REMARK]
== END 2018-12-11 ==
LOC: M CR 09:54
PROVIDERS: ATTEND Internal Medicine
DX: Z51.89 Encounter for other specified aftercare (principal)

== ENCOUNTER → 2019-01-26 | Outpatient (REF) | payer OTHER ==
[2019-01-26 17:37] LABS: AMYLASE 25 U/L (25-115); LIPASE 90 U/L (73-393)
[2019-01-27 11:15] LABS: H PYLORI QUALITATIVE IgG NEGATIVE (NEGATIVE)
== END ==
LOC: M LAB REF 16:25
PROVIDERS: ATTEND Nurse Practitioner Adult Health
DX: R07.89 Other chest pain (principal); R10.13 Epigastric pain

== ENCOUNTER 2019-03-12 10:48 | Emergency (ER) | payer OTHER ==
[~2019-03-12] VITALS: Ht 185.4 cm; Wt 86.7 kg
[2019-03-12] MEDS ORDERED: ASPI-1 PO (11:27)
[2019-03-12] MEDS ORDERED: ASPI81TA85 PO (11:27)
[2019-03-12 11:33] LABS: BASO % 0.5 % (0.0-1.0); EOS # 0.1 10^3/uL (0.0-0.5); EOS % 2.3 % (0.0-3.0); HEMATOCRIT 44.6 % (42.0-52.0); HEMOGLOBIN 14.7 g/dl (13.5-17.5); LYMPH # 1.9 10^3/uL (1.5-5.0); LYMPH % 33.3 % (24.0-44.0); MEAN CORPUSCULAR HEMOGLOBIN 30.9 pg (27.0-33.0); MEAN CORPUSCULAR VOLUME 93.7 fl (80.0-96.0); MONO # 0.6 10^3/uL (0.0-0.8); MONO % 10.6 % (0.0-5.0); NEUTROPHILS # 3.1 10^3/uL (1.5-8.5); NEUTROPHILS % 53.1 % (36.0-66.0); PLATELET COUNT, AUTOMATED 281 10^3/uL (150-450); RED BLOOD COUNT 4.76 10^6/uL (4.30-6.10); WHITE BLOOD COUNT 5.8 10^3/uL (4.0-10.0)
[2019-03-12 12:11] LABS: ALBUMIN 3.7 GM/DL (3.2-5.2); ALT/SGPT 21 U/L (12-78); BILIRUBIN,DIRECT 0.1 MG/DL (0.0-0.2); BILIRUBIN,TOTAL 0.4 MG/DL (0.2-1.0); BLOOD UREA NITROGEN 15 MG/DL (7-18); CARBON DIOXIDE LEVEL 27 MEQ/L (21-32); CHLORIDE LEVEL 107 MEQ/L (98-107); CK-MB VALUE MASS < 1.0 NG/ML (<3.6); CPK CREATINE PHOSPHOKINASE 95 U/L (39-308); CREATININE FOR GFR 1.15 MG/DL (0.70-1.30); GLOMERULAR FILTRATION RATE > 60.0 (>49); GLUCOSE, FASTING 94 MG/DL (70-100); LIPASE 71 U/L (73-393); MB/CK RELATIVE INDEX 1.05 (< OR =4); SODIUM LEVEL 141 MEQ/L (136-145); TOTAL PROTEIN 7.5 GM/DL (6.4-8.2); TROPONIN I < 0.02 NG/ML (< 0.10)
[2019-03-12] MEDS ORDERED: GI COCKTAIL 50ML BTL(HYOSCYAMINE/MAALOX/LIDOCAINE VISCOUS)(1:3:1) PO ONE (12:45)
--- NOTE | 2019-03-12 13:02 | REP ---
AP PORTABLE CHEST: 03/11/2019. Comparison: Chest x-ray 01/26/2019, AP portable chest 10/18/2018. Clinical history: Chest pain. Findings: Lungs well inflated. No effusion, infiltrate, atelectasis or mass. The heart, mediastinal and hilar contours are normal. There is no pneumothorax or pneumomediastinum. The aorta and airway were intact. Darleen are symmetric and grossly unremarkable. No new or acute finding. Impression: 1. No acute cardiopulmonary change. Stable examination from 01/26/2019. Electronically Signed by Emmanuel Hampton MD 03/12/2019 07:04 P
[2019-03-12 14:04] LABS: CK-MB VALUE MASS < 1.0 NG/ML (<3.6); CPK CREATINE PHOSPHOKINASE 76 U/L (39-308); MB/CK RELATIVE INDEX 1.32 (< OR =4); TROPONIN I < 0.02 NG/ML (< 0.10)
[2019-03-12] MEDS ORDERED: SUCR1TA PO (14:21)
[2019-03-12] MEDS ORDERED: PRIL20TA2 PO (14:21)
[2019-03-12 14:30] VITALS: BP 118/71
--- NOTE | 2019-03-13 08:25 | ECGEPIP ---
[facility] - ED Test Date: 2019-03-12 Pat Name: BLANCO DAVIS Department: Room: - Gender: Male Picker / Packer: ANIKET : 1955 Requested By: SHAN Johnson Order Number: [id number] Reading MD: Helen Samson Measurements Intervals [place] Rate: 61 P: 42 [place]: 121 QRS: 7 QRSD: 110 T: 53 QT: 413 QTc: 416 Interpretive Statements SINUS RHYTHM WITH SINUS ARRHYTHMIA LOW QRS VOLTAGE IN EXTREMITY LEADS PRWP Electronically Signed on 03-13-2019 8:25:11 EDT by Helen Samson
--- NOTE | 2019-03-13 08:26 | ECGEPIP ---
[facility] - ED Test Date: 2019-03-12 Pat Name: BLANCO DAVIS Department: Room: - Gender: Male Order Entry Technician: christina : 1955 Requested By: SHAN Johnson Order Number: [id number] Reading MD: Helen Samson Measurements Intervals [place] Rate: 50 P: 35 [place]: 151 QRS: 3 QRSD: 101 T: 53 QT: 431 QTc: 394 Interpretive Statements SINUS BRADYCARDIA LOW QRS VOLTAGE IN EXTREMITY LEADS PRWP DECREASED RATE 03/12/19 Electronically Signed on 03-13-2019 8:26:42 EDT by Helen Samson
== END 2019-03-12 14:39 | disposition home or self-care (01) ==
LOC: M ED 10:48
DX: K21.9 Gastro-esophageal reflux disease without esophagitis (principal); R07.89 Other chest pain; R00.1 Bradycardia, unspecified; Z79.82 Long term (current) use of aspirin

== ENCOUNTER 2019-04-02 07:13 | Emergency (ER) | payer OTHER ==
[~2019-04-02] VITALS: Ht 185.4 cm; Wt 87.9 kg
[~2019-04-02 07:13] MED LIST changes: +ASPI-1 PO; +PRIL20TA2 PO; +SUCR1TA PO
[2019-04-02] MEDS ORDERED: TUMS500C PO (07:30)
[2019-04-02 07:35] LABS: BASO % 0.4 % (0.0-1.0); EOS # 0.1 10^3/uL (0.0-0.5); EOS % 1.6 % (0.0-3.0); HEMATOCRIT 47.1 % (42.0-52.0); HEMOGLOBIN 15.5 g/dl (13.5-17.5); LYMPH # 2.7 10^3/uL (1.5-5.0); MEAN CORPUSCULAR HEMOGLOBIN 30.9 pg (27.0-33.0); MEAN CORPUSCULAR HGB CONC 32.9 g/dl (32.0-36.5); MEAN CORPUSCULAR VOLUME 93.8 fl (80.0-96.0); MONO # 0.8 10^3/uL (0.0-0.8); MONO % 11.3 % (0.0-5.0); NEUTROPHILS # 3.2 10^3/uL (1.5-8.5); NEUTROPHILS % 46.6 % (36.0-66.0); PLATELET COUNT, AUTOMATED 323 10^3/uL (150-450); RED BLOOD COUNT 5.02 10^6/uL (4.30-6.10); WHITE BLOOD COUNT 6.8 10^3/uL (4.0-10.0)
[2019-04-02 07:45] LABS: INR 0.93; PROTHROMBIN TIME 12.2 SECONDS (11.8-14.0)
[2019-04-02 07:46] LABS: PARTIAL THROMBOPLASTIN TIME 29.4 SECONDS (25.0-38.4)
[2019-04-02 08:14] LABS: ALBUMIN 3.9 GM/DL (3.2-5.2); ALT/SGPT 27 U/L (12-78); BILIRUBIN,DIRECT < 0.1 MG/DL (0.0-0.2); BILIRUBIN,TOTAL 0.3 MG/DL (0.2-1.0); BLOOD UREA NITROGEN 18 MG/DL (7-18); CALCIUM LEVEL 9.8 MG/DL (8.8-10.2); CARBON DIOXIDE LEVEL 28 MEQ/L (21-32); CHLORIDE LEVEL 106 MEQ/L (98-107); CK-MB VALUE MASS < 1.0 NG/ML (<3.6); CPK CREATINE PHOSPHOKINASE 77 U/L (39-308); CREATININE FOR GFR 1.13 MG/DL (0.70-1.30); FREE T4 1.02 NG/DL (0.76-1.46); GLOMERULAR FILTRATION RATE > 60.0 (>49); GLUCOSE, FASTING 102 MG/DL (70-100); LIPASE 111 U/L (73-393); POTASSIUM SERUM 3.9 MEQ/L (3.5-5.1); SODIUM LEVEL 140 MEQ/L (136-145); TOTAL PROTEIN 7.4 GM/DL (6.4-8.2); TROPONIN I < 0.02 NG/ML (< 0.10)
[2019-04-02] MEDS ORDERED: ISOVUE-370 76% 100ML VIAL (Q9967) As Ordered ONE (08:27)
[2019-04-02] MEDS ORDERED: ASPIRIN 81 MG CHEW TABLET PO ONE (08:30)
--- NOTE | 2019-04-02 08:51 | REP ---
Chest x-ray: Two views. History: Chest pain. Comparison study: March 12, 2019. Findings: The lungs are symmetrically somewhat hyperinflated but clear. Pleural angles are sharp. Heart size is normal. Monitoring electrodes are seen. No significant bony abnormality is seen. Impression: Hyperinflation. Otherwise no acute disease. Electronically Signed by Navi Ribera MD 04/02/2019 09:28 A
--- NOTE | 2019-04-02 08:58 | REP ---
CT pulmonary angiogram: With IV contrast. History: Chest pain Comparison studies: Comparison chest CT study with contrast October 11, 2018. Contrast dose: 75 ML of Isovue [address] technique: Helical scanning is acquired and overlapping 1.5 mm and contiguous 3 mm axial images are reformatted. In addition, maximum intensity projection and multiplanar re-formation images are generated in sagittal and coronal imaging projections. CT pulmonary angiographic findings: There is good opacification of the pulmonary arterial tree and there is no CT evidence of pulmonary embolus. There is no evidence of aortic dissection or aneurysm. No hilar or mediastinal mass or adenopathy is observed. No adrenal lesion is seen. The visualized upper abdominal structures are unremarkable. No pleural or pericardial effusion is seen. Maximal intensity projection images show no filling a for or vessel cutoff. No significant pulmonary nodule is seen. No infiltrate is noted. Impression: No CT evidence of pulmonary embolus or other acute thoracic abnormality. Electronically Signed by Navi Ribera MD 04/02/2019 08:50 A
[2019-04-02] MEDS ORDERED: GI COCKTAIL 50ML BTL(HYOSCYAMINE/MAALOX/LIDOCAINE VISCOUS)(1:3:1) PO ONE (09:15)
[2019-04-02 13:45] LABS: CK-MB VALUE MASS < 1.0 NG/ML (<3.6); CPK CREATINE PHOSPHOKINASE 68 U/L (39-308); MB/CK RELATIVE INDEX 1.47 (< OR =4); TROPONIN I < 0.02 NG/ML (< 0.10)
[2019-04-02 14:45] VITALS: BP 129/74
--- NOTE | 2019-04-02 19:05 | ECGEPIP ---
[facility] - ED Test Date: 2019-04-02 Pat Name: BLANCO DAVIS Department: Room: - Gender: Male Animal Cruelty Investigation Supervisor: VILLA : 1955 Requested By: GASTON Diaz Order Number: [id number] Reading MD: Jet Ferrera Measurements Intervals [employer] Rate: 65 P: 66 MT: 139 QRS: 66 QRSD: 108 T: 67 QT: 397 QTc: 414 Interpretive Statements SINUS RHYTHM SIMILAR TO 03/12/19 Electronically Signed on 04-02-2019 19:05:52 EDT by Jet Ferrera
--- NOTE | 2019-04-02 19:08 | ECGEPIP ---
[facility] - ED Test Date: 2019-04-02 Pat Name: BLANCO DAVIS Department: Room: - Gender: Male Pearl Technician: VILLA : 1955 Requested By: GASTON Diaz Order Number: [id number] Reading MD: Jet Ferrera Measurements Intervals [place] Rate: 44 P: 60 [place]: 146 QRS: 67 QRSD: 102 T: 66 QT: 437 QTc: 376 Interpretive Statements SINUS BRADYCARDIA SIMILAR TO PRIOR ON SAME DATE Electronically Signed on 04-02-2019 19:08:07 EDT by Jet Ferrera
== END 2019-04-02 15:04 | disposition home or self-care (01) ==
LOC: M ED 07:13
DX: R07.9 Chest pain, unspecified (principal); K21.9 Gastro-esophageal reflux disease without esophagitis; Z79.82 Long term (current) use of aspirin; Z87.891 Personal history of nicotine dependence
CPT/HCPCS: 36415; 71046; 71275; 80048; 80076; 82550; 82553; 83690; 84439; 84443; 84484; 85025; 85610; 85730; 93005; 93041; 94760; 99285; Q9967

== ENCOUNTER 2019-05-23 12:47 | Day surgery (SDC) | payer OTHER ==
[~2019-05-23] VITALS: Ht 185.4 cm; Wt 89.6 kg
[~2019-05-23 12:47] MED LIST changes: +COLA100C5 PO; +NS 1,000 ML IV ONE; +PEPC1TAB5 PO
[2019-05-23] MEDS ORDERED: LIDOCAINE 2% INJ 100 MG/5 ML SDV (FOR ANES.) As Ordered ONE (14:22)
[2019-05-23] MEDS ORDERED: PROPOFOL 200 MG/20 ML VIAL As Ordered ONE ×2 (14:22→14:34)
--- NOTE | 2019-05-23 15:18 | ROOR ---
Patient Name: Niraj Tavares Procedure Date: 05/23/2019 2:21 PM Date of : 1955 Age: 64 [facility]: [facility] Gender: Male Note Status: Finalized Procedure: Upper GI endoscopy Indications: Epigastric abdominal pain, Dysphagia Providers: Ben Alanis MD Referring MD: BONNIE BURROUGHS JR, MD Requesting Provider: Medicines: Monitored Anesthesia Care Complications: No immediate complications. Procedure: Pre-Anesthesia Assessment: - Prior to the procedure, a History and Physical was performed, and patient medications and allergies were reviewed. The patient is competent. The risks and benefits of the procedure and the sedation options and risks were discussed with the patient. All questions were answered and informed consent was obtained. Patient identification and proposed procedure were verified by the physician, the nurse and the anesthesiologist in the procedure room. Mental Status Examination: alert and oriented. Airway Examination: normal oropharyngeal airway and neck mobility. Respiratory Examination: clear to auscultation. CV Examination: normal. Prophylactic Antibiotics: The patient does not require prophylactic antibiotics. Prior Anticoagulants: The patient has taken no previous anticoagulant or antiplatelet agents. ASA Grade Assessment: II - A patient with mild systemic disease. After reviewing the risks and benefits, the patient was deemed in satisfactory condition to undergo the procedure. The anesthesia plan was to use monitored anesthesia care (MAC). Immediately prior to administration of medications, the patient was re-assessed for adequacy to receive sedatives. The heart rate, respiratory rate, oxygen saturations, blood pressure, adequacy of pulmonary ventilation, and response to care were monitored throughout the procedure. The physical status of the patient was re-assessed after the procedure. The Endoscope was introduced through the mouth, and advanced to the second part of duodenum. The upper GI endoscopy was accomplished without difficulty. The patient tolerated the procedure well. Findings: LA Grade B (one or more mucosal breaks greater than 5 mm, not extending between the tops of two mucosal folds) esophagitis with no bleeding was found in the distal esophagus. Biopsies were obtained from the proximal and distal esophagus with cold forceps for histology of suspected eosinophilic esophagitis. Verification of patient identification for the specimen was done by the physician and nurse using the patient's name, date and medical record number. Estimated blood loss was minimal. Scattered mild inflammation characterized by erythema, friability and granularity was found in the gastric antrum. Biopsies were taken with a cold forceps for Helicobacter pylori testing. The duodenal bulb and second portion of the duodenum were normal. Biopsies for histology were taken with a cold forceps for evaluation of celiac disease. Impression: - LA Grade B reflux esophagitis. Rule out Wyman's esophagus. Biopsied. - Gastritis. Biopsied. - Normal duodenal bulb and second portion of the duodenum. Biopsied. Recommendation: - Patient has a contact number available for emergencies. The signs and symptoms of potential delayed complications were discussed with the patient. Return to normal activities tomorrow. Written discharge instructions were provided to the patient. - Resume previous diet. - Continue present medications. - Await pathology results. - Use Pepcid (famotidine) 20 mg PO BID for 12 weeks. - Follow an antireflux regimen. - Telephone GI clinic for pathology results in 2 weeks. - Return to primary care physician. Ben Alanis MD Ben Alanis MD 05/23/2019 3:17:41 PM Electronically signed by Ben Alanis MD Number of Addenda: 0 Note Initiated On: 05/23/2019 2:21 PM Estimated Blood Loss: Estimated blood loss was minimal.
[2019-05-23 15:20] VITALS: BP 131/66
== END 2019-05-23 15:25 | disposition home or self-care (01) ==
LOC: M OPP 12:47
PROVIDERS: ATTEND Internal Medicine Gastroenterology
DX: K21.0 Gastro-esophageal reflux disease with esophagitis (principal); K29.70 Gastritis, unspecified, without bleeding; R10.13 Epigastric pain; R13.10 Dysphagia, unspecified; Z79.82 Long term (current) use of aspirin; Z79.899 Other long term (current) drug therapy; Z87.891 Personal history of nicotine dependence

== ENCOUNTER → 2019-09-07 | Outpatient (REF) | payer OTHER ==
[~2019-09-07] MED LIST changes: -NS 1,000 ML IV ONE
[2019-09-08 14:08] LABS: Lyme Disease IgG/IgM Antibodie <0.91 ISR (0.00-0.90); Lyme Disease IgM Ab Quantitati <0.80 index (0.00-0.79)
== END ==
LOC: M LAB REF 12:24
PROVIDERS: ATTEND Internal Medicine
DX: Z01.89 Encounter for other specified special examinations (principal); M15.9 Polyosteoarthritis, unspecified

== ENCOUNTER → 2019-11-22 | Outpatient (CLI) | payer OTHER ==
--- NOTE | 2019-11-23 14:47 | REP ---
Clinical: Lower urinary tract pain/symptoms. Technique: Real time chaney scale and color evaluation using curved array transducer. Findings: The bladder is normal in appearance without wall thickening or mass lesion. Bilateral ureteral jets are identified. Prevoid bladder measures 10.8 x 10.4 x 7.9 cm (575 ml). Postvoid bladder measures 4.9 x 6.0 x 4.8 cm (95 ml). Postvoid residual equals 17%. Impression: Normal bladder ultrasound.
== END ==
LOC: M PLAIMG 09:42
PROVIDERS: ATTEND Urology
DX: N40.1 Benign prostatic hyperplasia with lower urinary tract symptoms (principal); R31.29 Other microscopic hematuria

== ENCOUNTER 2020-05-15 10:22 | Emergency (ER) | payer OTHER, SELFPAY ==
[~2020-05-15] VITALS: Ht 185.4 cm; Wt 91.4 kg
[~2020-05-15 10:22] MED LIST changes: -ASPI81TA85 PO; +ASPI81TA86 PO; +PANT40TA29 PO; -PANT40TA3 PO
[2020-05-15 11:39] LABS: HEMATOCRIT 45.7 % (42.0-52.0); HEMOGLOBIN 14.9 g/dl (13.5-17.5); LYMPH # 1.3 10^3/uL (1.5-5.0); MEAN CORPUSCULAR HEMOGLOBIN 29.7 pg (27.0-33.0); MEAN CORPUSCULAR HGB CONC 32.6 g/dl (32.0-36.5); MONO # 0.5 10^3/uL (0.0-0.8); MONO % 11.5 % (0.0-5.0); NEUTROPHILS # 2.6 10^3/uL (1.5-8.5); PLATELET COUNT, AUTOMATED 242 10^3/uL (150-450); RED BLOOD COUNT 5.02 10^6/uL (4.30-6.10); WHITE BLOOD COUNT 4.4 10^3/uL (4.0-10.0)
[2020-05-15 12:15] LABS: BLOOD UREA NITROGEN 13 MG/DL (7-18); CALCIUM LEVEL 8.4 MG/DL (8.8-10.2); CARBON DIOXIDE LEVEL 26 MEQ/L (21-32); CHLORIDE LEVEL 103 MEQ/L (98-107); CK-MB VALUE MASS < 1.0 NG/ML (<3.6); CPK CREATINE PHOSPHOKINASE 100 U/L (39-308); CREATININE FOR GFR 1.27 MG/DL (0.70-1.30); GLOMERULAR FILTRATION RATE > 60.0 (>49); GLUCOSE, FASTING 107 MG/DL (70-100); POTASSIUM SERUM 3.9 MEQ/L (3.5-5.1); SODIUM LEVEL 136 MEQ/L (136-145); TROPONIN I < 0.02 NG/ML (< 0.10)
--- NOTE | 2020-05-15 13:56 | REP ---
INDICATION: CHEST PAIN COMPARISON: 04/02/2019 TECHNIQUE: Portable AP view of the chest FINDINGS: The mediastinum and cardiac silhouette are stable and within normal limits for portable technique. The lung owens are clear without acute consolidation, effusion, or pneumothorax. Skeletal structures are intact. IMPRESSION: No acute cardiopulmonary process appreciated. <Electronically signed by Davidson Blackman > 05/15/20 [id number]
[2020-05-15 15:22] VITALS: BP 120/67
--- NOTE | 2020-05-17 07:48 | ECGEPIP ---
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
== END 2020-05-15 15:40 | disposition home or self-care (01) ==
LOC: M ED 10:22
DX: U07.1 COVID-19 (principal); K21.9 Gastro-esophageal reflux disease without esophagitis; Z79.82 Long term (current) use of aspirin; Z79.899 Other long term (current) drug therapy
CPT/HCPCS: 71045; 80048; 82550; 82553; 84484; 85025; 93005; 93041; 94760; 99285; U0002

== ENCOUNTER 2020-06-03 11:43 | Emergency (ER) | payer SELFPAY ==
[~2020-06-03] VITALS: Ht 185.4 cm; Wt 85.0 kg
[2020-06-03] MEDS ORDERED: ASPI325T36 PO (12:00)
--- NOTE | 2020-06-03 12:27 | REP ---
INDICATION: CHEST PAIN COMPARISON: 04/02/2019, 05/15/2020 TECHNIQUE: Portable AP view of the chest FINDINGS: The mediastinum and cardiac silhouette are stable and within normal limits for portable technique. The lung owens are clear without acute consolidation, effusion, or pneumothorax. Skeletal structures are intact. IMPRESSION: No acute cardiopulmonary process appreciated. <Electronically signed by Davidson Blackman > 06/03/20 [id number]
[2020-06-03 12:31] LABS: BASO % 0.4 % (0.0-1.0); EOS % 0.5 % (0.0-3.0); HEMATOCRIT 43.3 % (42.0-52.0); HEMOGLOBIN 13.6 g/dl (13.5-17.5); LYMPH % 26.6 % (24.0-44.0); MEAN CORPUSCULAR HEMOGLOBIN 28.7 pg (27.0-33.0); MEAN CORPUSCULAR HGB CONC 31.4 g/dl (32.0-36.5); MEAN CORPUSCULAR VOLUME 91.4 fl (80.0-96.0); MONO # 0.8 10^3/uL (0.0-0.8); MONO % 10.2 % (0.0-5.0); NEUTROPHILS # 4.6 10^3/uL (1.5-8.5); NEUTROPHILS % 61.9 % (36.0-66.0); PLATELET COUNT, AUTOMATED 560 10^3/uL (150-450); RED BLOOD COUNT 4.74 10^6/uL (4.30-6.10); WHITE BLOOD COUNT 7.4 10^3/uL (4.0-10.0)
[2020-06-03 12:42] LABS: INR 0.87
[2020-06-03 12:43] LABS: PARTIAL THROMBOPLASTIN TIME 30.3 SECONDS (24.2-38.5)
[2020-06-03 13:03] LABS: BLOOD UREA NITROGEN 17 MG/DL (7-18); CREATININE FOR GFR 1.02 MG/DL (0.70-1.30); GLOMERULAR FILTRATION RATE > 60.0 (>49); GLUCOSE, FASTING 107 MG/DL (70-100); SODIUM LEVEL 142 MEQ/L (136-145)
[2020-06-03 13:04] LABS: ALBUMIN 3.3 GM/DL (3.2-5.2); ALT/SGPT 50 U/L (12-78); BILIRUBIN,DIRECT 0.1 MG/DL (0.0-0.2); BILIRUBIN,TOTAL 0.3 MG/DL (0.2-1.0); CALCIUM LEVEL 9.9 MG/DL (8.8-10.2); CARBON DIOXIDE LEVEL 25 MEQ/L (21-32); CHLORIDE LEVEL 108 MEQ/L (98-107); CK-MB VALUE MASS < 1.0 NG/ML (<3.6); CPK CREATINE PHOSPHOKINASE 54 U/L (39-308); FREE T4 1.08 NG/DL (0.76-1.46); LIPASE 140 U/L (73-393); MB/CK RELATIVE INDEX 1.85 (< OR =4); POTASSIUM SERUM 4.3 MEQ/L (3.5-5.1); TOTAL PROTEIN 7.6 GM/DL (6.4-8.2); TROPONIN I < 0.02 NG/ML (< 0.10)
[2020-06-03] MEDS ORDERED: KETOROLAC 30 MG/ML 1ML VIAL IV ONE (15:30)
[2020-06-03] MEDS ORDERED: ISOVUE-370 76% 100ML VIAL As Ordered ONE (15:37)
--- NOTE | 2020-06-03 19:52 | REPVR ---
PROCEDURE INFORMATION: Exam: CT Angiography Chest With Contrast Exam date and time: 06/03/2020 3:26 PM Age: 65 years old Clinical indication: Chest pain; Additional info: Left sided chest pain, recent covid TECHNIQUE: Imaging protocol: Computed tomographic angiography of the chest with intravenous contrast. 3D rendering (Not supervised by radiologist): MIP and/or 3D reconstructed images were created by the technologist. Radiation optimization: All CT scans at this facility use at least one of these dose optimization techniques: automated exposure control; mA and/or kV adjustment per patient size (includes targeted exams where dose is matched to clinical indication); or iterative reconstruction. Contrast material: ISOVUE 370; Contrast volume: 75 ml; Contrast route: INTRAVENOUS (IV); COMPARISON: CT ANGIO CHEST 04/02/2019 8:33 AM FINDINGS: Pulmonary arteries: Evaluation of the left lower lobe pulmonary arteries is suboptimal secondary to cardiac motion induced artifact. However, there are multiple foci of decreased attenuation within the left lower lobe pulmonary arteries suspicious for left lower lobe pulmonary emboli. Aorta: Mild atherosclerosis of the thoracic aorta. The ascending thoracic aorta has an AP diameter of 3.6 cm. No thoracic aortic dissection. Lungs: There are ground-glass opacities and multiple areas of crazy paving within the peripheral aspects of both lungs, worse on the right, consistent with stated diagnosis of COVID-19 infection. There are bilateral peripheral lower lobe subpleural bands and architectural distortion as well as probable vascular dilatation in the posterior right lower lobe. There is a 10 mm diameter nodular opacity within the medial basilar right lower lobe on axial images 70 through 74 that is new compared to the previous CT scan of the chest performed on 04/02/2019. An underlying pulmonary neoplasm cannot be excluded. Follow-up CT scan of the chest is recommended. Pleural space: Unremarkable. No pneumothorax. No pleural effusion. Heart: Unremarkable. No cardiomegaly. No pericardial effusion. Lymph nodes: Mild right hilar lymphadenopathy, unchanged. Bones/joints: Unremarkable. No acute fracture. Soft tissues: Unremarkable. IMPRESSION: 1. Findings consistent with known COVID-19 pneumonia. 2. Findings suspicious for left lower lobe pulmonary emboli. 3. 10 mm diameter nodular opacity within the medial basilar right lower lobe on axial images 70 through 74, new compared to the previous CT scan of the chest performed on 04/02/2019. An underlying pulmonary neoplasm cannot be excluded. Follow-up CT scan of the chest is recommended. For both low risk and high risk patients, consider CT Chest at 3 months, PET/CT, or biopsy. (Reference: Monserrat) References: Monserrat Vauhgn, et al. Guidelines for Management of Incidental Pulmonary Nodules Detected on CT Images: From the Fleischner Society 2017. Radiology. 2017;284(1):228-243. Electronically signed by: Jaskaran Mills On 06/03/2020 19:52:53 PM
[2020-06-03] MEDS ORDERED: ELIQ5TAB PO (20:23)
[2020-06-03 20:51] VITALS: BP 169/85
[2020-06-03] MEDS ORDERED: APIXABAN 5 MG TAB (ELIQUIS) PO ONE (21:00)
--- NOTE | 2020-06-04 00:32 | ECGEPIP ---
[facility] - ED Test Date: 2020-06-03 Pat Name: BLANCO DAVIS Department: Room: - Gender: Male Supervisor Wound: : 1955 Requested By: SHAN Johnson Order Number: [id number] Reading MD: Jet Ferrera Measurements Intervals [place] Rate: 81 P: 51 LA: 123 QRS: 0 QRSD: 109 T: 59 QT: 378 QTc: 440 Interpretive Statements SINUS RHYTHM WITH SINUS ARRHYTHMIA POOR R WAVE PROGRESSION SIMILAR TO 05/15/20 Electronically Signed on 06-04-2020 0:32:33 EST by Jet Ferrera
== END 2020-06-03 20:58 | disposition home or self-care (01) ==
LOC: M ED 11:43
DX: R91.1 Solitary pulmonary nodule (principal); K21.9 Gastro-esophageal reflux disease without esophagitis; R06.02 Shortness of breath
CPT/HCPCS: 71045; 71275; 80048; 80076; 82550; 82553; 83690; 84439; 84443; 84484; 85025; 85610; 85730; 93005; 93041; 94760; 96374; 99285; J1885; Q9967

== ENCOUNTER → 2020-07-18 | Outpatient (CLI) | payer MEDICARE ==
[~2020-07-18] MED LIST changes: +ASPI325T36 PO; +ELIQ5TAB PO
[2020-07-18 11:56] LABS: DRVV SCREEN 52.5 SEC
[2020-07-18 11:58] LABS: PTT LUPUS TYPE ANTICOAG SCREEN 1.3 (0-1.2)
[2020-07-18 12:40] LABS: DRVV CONFIRM 44.2 SEC; LUPUS CONFIRM RATIO 1.2; NORMALIZED RATIO 1.08 (0.00-1.20)
== END ==
LOC: M LAB 09:38
PROVIDERS: ATTEND Internal Medicine Pulmonary Disease
DX: I26.99 Other pulmonary embolism without acute cor pulmonale (principal)

== ENCOUNTER → 2020-08-07 | Outpatient (CLI) | payer MEDICARE ==
--- NOTE | 2020-08-07 11:47 | REP ---
INDICATION: ABNORMAL FINDING OF LUNG FIELD. COMPARISON: CT angiogram 06/03/2020, 04/02/2019 TECHNIQUE: Noncontrast scan through the chest with coronal and sagittal reconstructions provided FINDINGS: The extensive posterior segment infiltrates right upper lobe from the prior study and posteriorly in the right lower lobe from superior segment to the basilar segments are no longer present. There may be a trace residual curvilinear fibrotic change posteromedial basilar segment right lower lobe but no dense consolidation or parenchymal mass. No pulmonary nodule. Right upper lobe is clear. The left lung is clear. Some mild cylindrical bronchiectatic change. Some minimal fibrotic changes lateral segment right middle lobe are again noted. No pleural plaque or calcification seen. Heart is not enlarged. There is no pericardial thickening or effusion. Scattered nodes in the mediastinum and are not of pathologic size again seen. All of these are less than 10 mm in short axis and many of them are fatty replaced. No pericardial thickening or effusion and no hiatal hernia. Bone windows show the sternum, manubrium, medial clavicles, scapulae, humeral heads, ribs and spine are without acute finding. That portion of liver seen was unremarkable. Gallbladder without calcified stone or mass there is no splenomegaly or focal lesion. No ascites. Adrenal glands normal and the upper poles kidneys intact. Pancreas unremarkable. Visualized bowel loops intact. IMPRESSION: 1. Resolution of the stents of the posterior segment right upper lobe and posterior left lower lobe infiltrates which extended from superior segment to the basilar segments on the previous CT 06/03/2020. Couple of minimal areas of some residual scarring or subsegmental atelectasis in the posterior right lower lobe but otherwise the acute findings are completely cleared. No effusion or pleural plaque. Minor scarring lateral segment right middle lobe stable. No other significant findings or changes. <Electronically signed by Emmanuel Hampton > 08/07/20 [id number]
== END ==
LOC: M RAD 10:49
PROVIDERS: ATTEND Internal Medicine Pulmonary Disease
DX: R91.8 Other nonspecific abnormal finding of lung field (principal)

== ENCOUNTER → 2020-08-13 | Outpatient (CLI) | payer MEDICARE ==
[~2020-08-13] MED LIST changes: -ASPI325T36 PO; +ASPI325T49 PO
--- NOTE | 2020-08-14 11:43 | SLEEPCENT ---
NOCTURNAL POLYSOMNOGRAPHY DATE: 08/13/2020 ORDERED BY: Sylvie Roth MD Nocturnal polysomnography was performed for evaluation of sleep physiology in this patient with a history of excessive somnolence and irregular breathing in sleep. 8 hours and 1 minute of data were reviewed. There were 324.5 minutes of sleep identified. Sleep latency was normal at 16 minutes. REM latency was short at 40 minutes. Sleep architecture was fairly well preserved. There was a period of wake after 3:30, resulting in a reduced sleep efficiency of 68.4%. The electrocardiogram showed a sinus rhythm with an average heart rate of 52 beats per minute; rate range 45 to 75. EEG showed normal waveforms for wake and sleep. There were 71 respiratory events identified of 10 seconds in duration or greater for an apnea-hypopnea index of 13.1. The events were obstructive not exclusive to sleep stage. They were seen in the supine posture. Arousals from respiratory events occurred 2.4 times per hour, and oxygen desaturations were seen below 90%. There was some activity in the limb leads early in the study. Limb movement arousal index was only 3.9. IMPRESSION: Obstructive sleep apnea syndrome (G47.33), apnea-hypopnea index 13.1. RECOMMENDATION: The patient should be encouraged to return to [facility] for [facility]. In the interim, alcohol and sedative avoidance should be practiced and caution exercised during the operation of motor vehicles.
== END ==
LOC: M SLEEP 20:00
PROVIDERS: ATTEND Internal Medicine Pulmonary Disease
DX: G47.33 Obstructive sleep apnea (adult) (pediatric) (principal)

== ENCOUNTER → 2020-08-29 | Outpatient (CLI) | payer MEDICARE ==
--- NOTE | 2020-08-30 13:54 | SLEEPCENT ---
DATE: 08/29/2020 ORDERED BY: Dr. Sylvie Roth Nocturnal polysomnography was performed for the titration of pressure therapy in this patient with obstructive sleep apnea syndrome, apnea-hypopnea index 13.1. For testing, patient was fit with a ResMed F20 AirFit full-face mask of medium size. There was 4 cm of water pressure applied to the circuit, and the lights were extinguished. There was 8 hours and 10 minutes of data reviewed. There was 277.5 minutes of sleep identified. Sleep latency was prolonged at 58.5 minutes. REM latency was short at 46 minutes. Sleep architecture was good. There was a period of wake around 3:30 to 4:30, resulting in a reduced sleep efficiency of 57.8%. There were also five REM cycles noted. The electrocardiogram showed a sinus rhythm with an average heart rate of 50 beats per minute. EEG showed normal waveforms for wake and sleep. Respiratory events were fully palliated with CPAP at a pressure of +5. There was some minor limb activity, mostly early in the study. Limb movement arousal index was 3. IMPRESSION: Obstructive sleep apnea syndrome (G47.33). RECOMMENDATION: Nightly use of pressure therapy, 5 cm of water.
== END ==
LOC: M SLEEP 20:00
PROVIDERS: ATTEND Internal Medicine Pulmonary Disease
DX: G47.33 Obstructive sleep apnea (adult) (pediatric) (principal)

== ENCOUNTER → 2021-06-23 | Outpatient (CLI) | payer MEDICARE ==
[~2021-06-23] MED LIST changes: +ASPI1CHW3 PO; +CBD OIL; +CO Q300C PO; +VITMTA PO
== END ==
LOC: M LABSMTC 10:35
PROVIDERS: ATTEND Anesthesiology
DX: Z01.812 Encounter for preprocedural laboratory examination (principal); Z20.822 Contact with and (suspected) exposure to COVID-19

== ENCOUNTER 2021-06-27 07:51 | Day surgery (SDC) | payer MEDICARE ==
[~2021-06-27] VITALS: Ht 185.4 cm; Wt 95.4 kg
[~2021-06-27 07:51] MED LIST changes: +NS 1,000 ML IV ONE
[2021-06-27] MEDS ORDERED: GLYCOPYRROLATE INJ 0.2 MG/ML 2 ML VIAL As Ordered ONE (09:14)
[2021-06-27] MEDS ORDERED: propofoL 200 MG/20 ML VIAL As Ordered ONE ×3 (09:14→10:11)
[2021-06-27] MEDS ORDERED: LIDOCAINE 2% 100MG/5ML SDV (FOR ANES.) As Ordered ONE (09:14)
[2021-06-27] MEDS ORDERED: METOPROLOL 5 MG/5 ML VIAL As Ordered ONE (10:01)
[2021-06-27 10:50] VITALS: BP 127/78
== END 2021-06-27 11:07 | disposition home or self-care (01) ==
LOC: M OPP 07:51
PROVIDERS: ATTEND Internal Medicine Gastroenterology
DX: Z12.11 Encounter for screening for malignant neoplasm of colon (principal); Z86.010 Personal history of colon polyps; K63.5 Polyp of colon; K64.8 Other hemorrhoids; K22.2 Esophageal obstruction; K21.00 Gastro-esophageal reflux disease with esophagitis, without bleeding; R10.13 Epigastric pain; R13.10 Dysphagia, unspecified; Z79.82 Long term (current) use of aspirin; Z86.711 Personal history of pulmonary embolism; Z87.891 Personal history of nicotine dependence

== ENCOUNTER → 2021-08-13 | Outpatient (CLI) | payer MEDICARE ==
[~2021-08-13] MED LIST changes: -NS 1,000 ML IV ONE
== END ==
LOC: M RAD 08:14
PROVIDERS: ATTEND Internal Medicine Pulmonary Disease
DX: Z87.891 Personal history of nicotine dependence (principal)

== ENCOUNTER → 2022-03-16 | Outpatient (CLI) | payer MEDICARE | LOC: M RAD 13:48 | PROVIDERS: ATTEND Physician Assistant Medical | DX: R05.3 Chronic cough (principal); Z86.16 Personal history of COVID-19 ==

== ENCOUNTER → 2022-10-08 | Outpatient (CLI) | payer MEDICARE ==
[~2022-10-08] MED LIST changes: +ASPI-655 PO; -ASPI1CHW3 PO; -CO Q300C PO; +CO Q300C2 PO
== END ==
LOC: M RAD 07:17
PROVIDERS: ATTEND Internal Medicine Pulmonary Disease
DX: Z12.2 Encounter for screening for malignant neoplasm of respiratory organs (principal); Z87.891 Personal history of nicotine dependence; I77.810 Thoracic aortic ectasia; M47.9 Spondylosis, unspecified

== ENCOUNTER 2023-10-21 11:27 | Emergency (ER) | payer MEDICARE ==
[~2023-10-21] VITALS: Ht 185.4 cm; Wt 95.5 kg
[2023-10-21 11:27] VITALS: TEMP 97.9
[2023-10-21] MEDS ORDERED: ISOVUE-370 76% 100ML VIAL As Ordered ONE (12:10)
[2023-10-21 12:22] LABS: VENOUS BASE EXCESS -1.4 (-2.0-2.0); VENOUS HCO3 24.1 MMOL/L (23.0-27.0); VENOUS O2 SATURATION 74.4 % (60.0-80.0); VENOUS PARTIAL PRESSURE CO2 43.3 mmHg (38.0-50.0); VENOUS PARTIAL PRESSURE O2 39.7 mmHg (30.0-50.0); VENOUS PH 7.363 UNITS (7.330-7.430); VENOUS STANDARD HCO3 22.7 MMOL/L; VENOUS TOTAL CO2 25.4 MMOL/L (24.0-28.0)
[2023-10-21 12:27] LABS: BASO % 0.3 % (0.0-1.0); EOS # 0.1 10^3/uL (0.0-0.5); EOS % 0.5 % (0.0-3.0); HEMATOCRIT 42.3 % (42.0-52.0); LYMPH # 1.3 10^3/uL (1.5-5.0); LYMPH % 13.4 % (24.0-44.0); MEAN CORPUSCULAR HEMOGLOBIN 30.2 pg (27.0-33.0); MEAN CORPUSCULAR HGB CONC 33.1 g/dl (32.0-36.5); MEAN CORPUSCULAR VOLUME 91.2 fl (80.0-96.0); MONO # 0.9 10^3/uL (0.0-0.8); MONO % 9.4 % (2.0-8.0); NEUTROPHILS # 7.1 10^3/uL (1.5-8.5); NEUTROPHILS % 76.1 % (36.0-66.0); PLATELET COUNT, AUTOMATED 292 10^3/uL (150-450); RED BLOOD COUNT 4.64 10^6/uL (4.30-6.10); WHITE BLOOD COUNT 9.4 10^3/uL (4.0-10.0)
[2023-10-21 12:41] LABS: INR 0.95; PROTHROMBIN TIME 12.4 SECONDS (12.5-14.5)
[2023-10-21 12:49] LABS: ETHYL ALCOHOL (ETHANOL) 0.004 % (0.000-0.010); LIPASE 31 U/L (12-53)
[2023-10-21 12:50] LABS: AMYLASE 27 U/L (30-118)
[2023-10-21 12:51] LABS: ALBUMIN 3.8 G/DL (3.2-5.2); ALKALINE PHOSPHATASE 79 U/L (46-116); ALT/SGPT 23 U/L (7.0-40); AST/SGOT 17 U/L (<34); BILIRUBIN,DIRECT < 0.1 MG/DL (<0.4); BILIRUBIN,TOTAL 0.3 MG/DL (0.3-1.2); BLOOD UREA NITROGEN 17 MG/DL (9-23); CALCIUM LEVEL 9.1 MG/DL (8.3-10.6); CARBON DIOXIDE LEVEL 26 MMOL/L (20-31); CHLORIDE LEVEL 106 MMOL/L (98-107); CREATININE FOR GFR 0.97 MG/DL (0.70-1.30); GLOMERULAR FILTRATION RATE > 60.0 (>42); GLUCOSE, FASTING 131 MG/DL (74-106); POTASSIUM SERUM 3.7 MMOL/L (3.5-5.1); SODIUM LEVEL 137 MMOL/L (136-145); TOTAL PROTEIN 7.1 G/DL (5.7-8.2)
[2023-10-21 13:10] LABS: APPEARANCE, URINE CLEAR (CLEAR); BACTERIA, URINE AUTO NEGATIVE (NEGATIVE); BILIRUBIN, URINE AUTO NEGATIVE (NEGATIVE); BLOOD, URINE BLOOD NEGATIVE (NEGATIVE); COLOR, URINE STRAW (YELLOW); GLUCOSE, URINE (UA) AUTO NEGATIVE (NEGATIVE); KETONE, URINE AUTO NEGATIVE (NEGATIVE); LEUKOCYTE ESTERASE, URINE AUTO NEGATIVE (NEGATIVE); NITRITE, URINE AUTO NEGATIVE (NEGATIVE); PROTEIN, URINE AUTO NEGATIVE (NEGATIVE); RBC, URINE AUTO 1 /HPF (0-3); SPECIFIC GRAVITY URINE AUTO 1.015 (1.002-1.035); SQUAMOUS EPITHELIAL CELL UR AU 0 /HPF (0-6); UROBILINOGEN, URINE AUTO 0.2 mg/dL (0.0-2.0); WBC, URINE AUTO 0 /HPF (0-3)
[2023-10-21 13:38] LABS: AMPHETAMINES LEVEL URINE NEGATIVE (NEGATIVE); BARBITURATES URINE NEGATIVE (NEGATIVE); BENZODIAZEPINES URINE NEGATIVE (NEGATIVE); CANNABINOIDS URINE NEGATIVE (NEGATIVE); COCAINE METABOLITE URINE NEGATIVE (NEGATIVE); METHADONE URINE NEGATIVE (NEGATIVE); OPIATES URINE NEGATIVE (NEGATIVE); PHENCYCLIDINE URINE NEGATIVE (NEGATIVE)
[2023-10-21 13:45] VITALS: BP 117/61
[2023-10-21 14:00] VITALS: O2SAT 97
[2023-10-21] MEDS: ACETAMINOPHEN 500 MG TAB PO ONE (14:03)
[2023-10-21] MEDS: BOOSTRIX VACCINE (TETANUS/DIPHTH/ACEL. PERTUSSIS) 0.5ML SYR IM.IMMUN ONE (14:04)
[2023-10-21] MEDS: LIDOCAINE 2% W/EPINEPHRINE 20ML VIAL **PRES FREE INJ ONE (14:15)
[2023-10-21] MEDS ORDERED: VITA1CAP14 PO (14:16)
[2023-10-21] MEDS ORDERED: RA M500C PO (14:16)
[2023-10-21] MEDS ORDERED: EQL50TAB2 PO (14:16)
[2023-10-21] MEDS ORDERED: GALZ50CA PO (14:16)
[2023-10-21] MEDS ORDERED: MILK175C6 PO (14:16)
[2023-10-21] MEDS ORDERED: CORICAP PO (14:16)
[2023-10-21] MEDS ORDERED: VITA500C24 PO (14:16)
[2023-10-21] MEDS ORDERED: K2 P1TAB PO (14:16)
[2023-10-21] MEDS ORDERED: ASPI81TA26 PO (14:16)
[2023-10-21] MEDS ORDERED: HOME MED LIST COMPLETE! XX SCH (14:20)
[2023-10-21] MEDS ORDERED: BACI500O8 TOP (14:42)
== END 2023-10-21 15:20 | disposition home or self-care (01) ==
LOC: M ED 11:27
DX: S20.219A Contusion of unspecified front wall of thorax, initial encounter (principal); S93.401A Sprain of unspecified ligament of right ankle, initial encounter; S51.012A Laceration without foreign body of left elbow, initial encounter; W11.XXXA Fall on and from ladder, initial encounter; F41.9 Anxiety disorder, unspecified; K21.9 Gastro-esophageal reflux disease without esophagitis; M89.312 Hypertrophy of bone, left shoulder; M50.322 Other cervical disc degeneration at C5-C6 level; M50.33 Other cervical disc degeneration, cervicothoracic region; M46.92 Unspecified inflammatory spondylopathy, cervical region; Y92.009 Unspecified place in unspecified non-institutional (private) residence as the place of occurrence of the external cause; Y93.89 Activity, other specified; Y99.9 Unspecified external cause status; Z79.82 Long term (current) use of aspirin; Z79.810 Long term (current) use of selective estrogen receptor modulators (SERMs); Z79.899 Other long term (current) drug therapy; Z23 Encounter for immunization
CPT/HCPCS: 12001; 70450; 71045; 71260; 72125; 72170; 73030; 73080; 73610; 74177; 80047; 80048; 80076; 80307; 81001; 82077; 82150; 82803; 83605; 83690; 85025; 85610; 85730; 86850; 86900; 86901; 90471; 90715; 93041; 94760; 99285; Q9967

== ENCOUNTER → 2024-12-20 | Outpatient (REF) | payer MEDICARE ==
[~2024-12-20] MED LIST changes: +ASPI81TA26 PO; +BACI500O8 TOP; +CORICAP PO; +K2 P1TAB PO; +MILK175C6 PO; +RA M500C PO; +VITA1CAP14 PO; +VITA1TAB82 PO; +VITA500C24 PO; +ZINC50CA4 PO
== END ==
LOC: M LAB REF 12:09
PROVIDERS: ATTEND Internal Medicine
DX: R53.83 Other fatigue (principal)

== ENCOUNTER → 2025-01-10 | Outpatient (CLI) | payer MEDICARE | LOC: M RAD 17:37 | PROVIDERS: ATTEND Internal Medicine Pulmonary Disease | DX: Z87.891 Personal history of nicotine dependence (principal) ==